=== PATIENT | male | born 1940 | race Caucasian/White ===

== ENCOUNTER → 2017-04-24 | Outpatient (CLI) | payer OTHER | LOC: NUC 08:20 | DX: I25.10 Atherosclerotic heart disease of native coronary artery without angina pectoris (principal) ==

== ENCOUNTER 2017-09-30 12:39 | Emergency (ER) | payer OTHER ==
[~2017-09-30] VITALS: Ht 190.5 cm; Wt 104.3 kg
[2017-09-30 13:07] LABS: ABSOLUTE NEUTROPHILS 5.9 thou/uL (1.4-8.2); BASOPHILS 0.5 % (0.0-2.0); EOSINOPHILS 0.8 % (0.0-3.0); HEMATOCRIT 47.6 % (42.0-52.0); HEMOGLOBIN 16.1 gm/dL (14.0-18.0); LYMPHOCYTES 20.9 % (24.0-44.0); MCHC 33.7 g/dL (28.0-37.0); MCV 91.9 fL (80.0-100.0); MONOCYTES 5.6 % (1.0-8.0); PLATELET COUNT 206 thou/uL (150-400); POLYS 72.2 % (36.0-66.0); RBC 5.18 mil/uL (4.50-6.00); RDW 13.4 % (10.5-14.5); WBC 8.2 thou/uL (4.0-11.0)
[2017-09-30 13:08] LABS: MANUAL DIFF NO
[2017-09-30 13:21] LABS: CALCIUM 9.3 mg/dL (8.5-10.1); CREATININE 1.2 mg/dL (0.7-1.3); POTASSIUM 4.3 mmol/L (3.5-5.1)
[2017-09-30 13:27] LABS: TOTAL BILIRUBIN 0.8 mg/dL (<0.1-1.0); TOTAL PROTEIN 7.5 g/dL (6.4-8.2)
[2017-09-30] MEDS ORDERED: BENTYL 10 MG CA10 M1 PO (14:43)
[2017-09-30] MEDS ORDERED: LOPERAMIDE 2 MG2 M1 PO (14:43)
[2017-09-30 14:51] VITALS: BP 147/87
== END 2017-09-30 14:57 | disposition home or self-care (01) ==
LOC: ER 12:39
PROVIDERS: Physician Assistant
DX: R19.7 Diarrhea, unspecified (principal); K21.9 Gastro-esophageal reflux disease without esophagitis; I20.9 Angina pectoris, unspecified; Z98.890 Other specified postprocedural states

== ENCOUNTER → 2017-10-30 | Outpatient (CLI) | payer OTHER ==
[~2017-10-30] MED LIST: BENTYL 10 MG CA10 M1 PO; LOPERAMIDE 2 MG2 M1 PO
--- NOTE | ~2017-10-30 | 2DMMODE ---
[facility] [address] [place] [address] 2 D/M-MODE ECHOCARDIOGRAM Name: MORE KHOURY Room #: REG [facility]#: [id number] Admission: 10/30/17 Attend Phys: Michael Woodard MD Discharge: Date of : 40 Date of Service: 10/30/17 1605 Report #: [id number] THIS REPORT FOR: //name// APPROVED REPORT Study performed: 10/30/2017 14:55:10 EXAM: Comprehensive 2D, Doppler, and color-flow Echocardiogram Patient Location: Out-Patient Status: routine BSA: 2.32 HR: 66 bpm BP: 125/65 mmHg Rhythm: NSR Other Information Study Quality: Adequate Technically limited study due to body habitus, lung artifact. Indications CAD, history of CABG 2D Dimensions RVDd: 37.98 mm LVEF(%): 60.88 (>50%) IVSd: 10.41 (7-11mm) LVOT Diam: 20.55 (18-24mm) LVDd: 49.85 mm PWd: 10.65 (7-11mm) Ascending Ao: 29.97 (22-36mm) LVDs: 33.55 (25-40mm) Aortic Root: 33.92 mm Camara's LVEF: 60.88 % Volumes Left Atrial Volume (Systole) Single Plane 4CH: 72.15 mL Single Plane 2CH: 71.52 mL LA ESV Index: 33.00 mL/m2 Aortic Valve AoV Peak Winston.: 1.14 m/s AO Peak Gr.: 6.47 mmHg LVOT Max P.28 mmHg LVOT Max V: 1.03 m/s JOY Vmax: 3.02 cm2 Mitral Valve [facility] [address] [address] 2 D/M-MODE ECHOCARDIOGRAM Name: IRAIDAMORE EDMONDSRED Room #: REG [facility]#: [id number] Admission: 10/30/17 Attend Phys: Michael Woodard MD Discharge: Date of : 40 Date of Service: 10/30/17 1605 Report #: [id number] E/A Ratio: 0.9 MV Decel. Time: 184.43 ms MV E Max Winston.: 0.72 m/s MV A Winston.: 0.83 m/s MV PHT: 53.48 ms IVRT: 59.98 ms Pulmonary Valve PV Peak Winston.: 1.34 m/s PV Peak Gr.: 7.13 mmHg Pulmonary Vein P Vein S: 0.64 m/s P Vein A: 0.22 m/s P Vein D: 0.37 m/s P Vein A Dur.: 115.3 msec P Vein S/D Ratio: 1.73 Tricuspid Valve TR Peak Winston.: 2.64 m/s RAP Estimate: 10.00 mmHg TR Peak Gr.: 27.81 mmHg PA Pressure: 38.00 mmHg Left Ventricle The left ventricle is normal size. There is normal LV segmental wall motion. There is normal left ventricular wall thickness. Left ventricular systolic function is normal. LVEF is 55%. Mild diastolic dysfunction is present (impaired relaxation pattern). Right Ventricle Right ventricle is not well visualized but appears grossly normal in size and function. Atria Left atrium is mildly dilated. Right atrium is mildly dilated. Aortic Valve Aortic valve is calcified. No aortic regurgitation is present. There is no aortic valvular stenosis. Mitral Valve The mitral valve is normal in structure. Trace mitral regurgitation. Tricuspid Valve The tricuspid valve is normal in structure. Mild to moderate tricuspid regurgitation. Estiamted PAP is 35-40mmHg. [address] [address] 2 D/M-MODE ECHOCARDIOGRAM Name: MORE KHOURY Room #: REG [facility] [id number] Admission: 10/30/17 Attend Phys: Michael Woodard MD Discharge: Date of : 40 Date of Service: 10/30/17 1605 Report #: [id number] Pulmonic Valve The pulmonary valve is normal in structure. There is no pulmonic valvular regurgitation. Great Vessels The aortic root is normal in size. The ascending aorta is normal in size. IVC is dilated and collapses >50% with inspiration. Pericardium There is no pericardial effusion. <Conclusion> The left ventricle is normal size. Left ventricular systolic function is normal. Mild diastolic dysfunction is present (impaired relaxation pattern). Left atrium is mildly dilated. Right atrium is mildly dilated. There is no aortic valvular stenosis. Trace mitral regurgitation. Mild to moderate tricuspid regurgitation. Estiamted PAP is 35-40mmHg. <ELECTRONICALLY SIGNED> By: Michael Woodard MD 10/30/17 1605 1605 1605 Michael Woodard MD /INF
== END ==
LOC: CV 12:16
DX: I25.10 Atherosclerotic heart disease of native coronary artery without angina pectoris (principal); I07.1 Rheumatic tricuspid insufficiency; I10 Essential (primary) hypertension; Z95.1 Presence of aortocoronary bypass graft

== ENCOUNTER → 2019-09-16 | Outpatient (CLI) | payer OTHER ==
--- NOTE | 2019-09-16 13:15 | EXE ---
[facility] [address] [place] [address] STRESS ECHOCARDIOGRAM Name: MORE KHOURY Room #: REG [facility]#: [id number] Admission: 09/16/19 Attend Phys: Michael Woodard MD Discharge: Date of : 40 Report #: [id number] THIS REPORT FOR: //name// APPROVED REPORT Study performed: 09/16/2019 10:19:48 Exam: Stress Echocardiogram Indication: CAD s/p CABG Patient Location: Out-Patient Stress Nurse: Celina Jamil RN Status: routine Ht: 6 ft 3 in HR: 65 bpm BP: 144/80 mmHg Rhythm: NSR Medical History Medications: Listed on worksheet Allergies: No known drug allergies Cardiac Risk Factors: HTN, Hyperlipidemia, FHX of CAD Previous Cardiac Procedures: CABG Procedure The patient underwent an Exercise Stress Test using the Abdelrahman Protocol. Blood pressure, heart rate, and EKG were monitored. An Echocardiogram was performed by paint technician in four stages in quad fashion. At peak stress, four selected images were obtained and placed side by side with resting images for comparison. Stress Test Details Stress Test: Exercise stress testing was performed using a Abdelrahman protocol. HR Resting HR: 65 bpm Max Heart Rate (APMHR): 141 bpm Max HR Achieved: 148 bpm Target HR (85% APMHR): 119 bpm % of APMHR: 104 Recovery HR: 89 bpm HR response to stress: Normal HR response to stress BP Resting BP: 144/80 mmHg Max BP: 190/70 mmHg Recovery BP: 140/70 mmHg BP response to stress: Normal blood pressure response to [facility] [address] [place] [address] STRESS ECHOCARDIOGRAM Name: MORE KHOURY Room #: REG [facility] [id number] Admission: 09/16/19 Attend Phys: Michael Woodard MD Discharge: Date of : 40 Report #: [id number] stress. ECG Resting ECG: Sinus Rhythm Stress ECG: Sinus Rhythm, nonspecific ST-T abnormalities ST Change: Non-ischemic Clinical Reason for Termination: Completed protocol Stress Symptoms: Fatigue Exercise duration: 8 min 30 sec Highest Stage Achieved: Stage 3: 3.4 mph at 14% grade. Exercise capacity: 10.40 METs Pre-Stress Echo The resting Echocardiogram showed normal left ventricular contractility with an estimated Ejection Fraction of about 55%. The resting echocardiogram demonstrated normal wall motion in all wall segments. Normal wall motion in all segments on baseline images. Post-Stress Echo The stress Echocardiogram showed normal left ventricular contractility with an estimated Ejection Fraction of about 65-70%. Compared to rest, there were no stress-induced wall motion abnormalities. Normal augmentation of wall motion in all segments on post stress images. Clinical No clinical or ECG evidence for ischemia. Conclusion Clinical Response: Non-ischemic Exercise Capacity: Above average Stress ECG Response: Non-ischemic Stress Echo Images: Non-ischemic The left ventricle is normal in size and wall thickness in both the rest and stress images. Other Information Study Quality: Adequate/Fair <Conclusion> [facility] [address] [address] STRESS ECHOCARDIOGRAM Name: MORE KHOURY Room #: REG [facility]#: [id number] Admission: 09/16/19 Attend Phys: Michael Woodard MD Discharge: Date of : 40 Report #: [id number] The left ventricle is normal in size and wall thickness in both the rest and stress images. <ELECTRONICALLY SIGNED> By: Michael Woodard MD 09/16/195 14 14 Michael Woodard MD /INF
== END ==
LOC: CV 09:53
DX: I25.810 Atherosclerosis of coronary artery bypass graft(s) without angina pectoris (principal); Z95.5 Presence of coronary angioplasty implant and graft

== ENCOUNTER → 2020-03-16 | Outpatient (CLI) | payer OTHER | LOC: SJCVC 11:16 | PROVIDERS: ATTEND Internal Medicine Cardiovascular Disease | DX: I25.700 Atherosclerosis of coronary artery bypass graft(s), unspecified, with unstable angina pectoris (principal); I10 Essential (primary) hypertension; I44.7 Left bundle-branch block, unspecified; E78.5 Hyperlipidemia, unspecified; E78.00 Pure hypercholesterolemia, unspecified; Z79.82 Long term (current) use of aspirin; Z79.899 Other long term (current) drug therapy; Z95.1 Presence of aortocoronary bypass graft; Z82.49 Family history of ischemic heart disease and other diseases of the circulatory system ==

== ENCOUNTER → 2020-10-26 | Outpatient (CLI) | payer OTHER | LOC: SJCVCIMAG 10-18 09:10 | PROVIDERS: ATTEND Internal Medicine Cardiovascular Disease | DX: I25.10 Atherosclerotic heart disease of native coronary artery without angina pectoris (principal); I10 Essential (primary) hypertension; E78.00 Pure hypercholesterolemia, unspecified; R60.9 Edema, unspecified; Z95.1 Presence of aortocoronary bypass graft; Z79.82 Long term (current) use of aspirin; Z79.899 Other long term (current) drug therapy ==

== ENCOUNTER → 2021-04-26 | Outpatient (CLI) | payer OTHER | LOC: SJCVCIMAG 09:37 → SJCVC 15:14 → SJCVCIMAG 15:14 | PROVIDERS: ATTEND Internal Medicine Cardiovascular Disease | DX: I45.10 Unspecified right bundle-branch block (principal); I10 Essential (primary) hypertension; I25.10 Atherosclerotic heart disease of native coronary artery without angina pectoris; E78.00 Pure hypercholesterolemia, unspecified; R60.9 Edema, unspecified; E11.9 Type 2 diabetes mellitus without complications; E78.5 Hyperlipidemia, unspecified; Z95.1 Presence of aortocoronary bypass graft; Z79.82 Long term (current) use of aspirin; Z79.899 Other long term (current) drug therapy; Z82.49 Family history of ischemic heart disease and other diseases of the circulatory system ==

== ENCOUNTER → 2021-10-31 | Outpatient (CLI) | payer OTHER | LOC: SJCVC 11:29 | PROVIDERS: ATTEND Internal Medicine Cardiovascular Disease | DX: I25.10 Atherosclerotic heart disease of native coronary artery without angina pectoris (principal); I10 Essential (primary) hypertension; E78.00 Pure hypercholesterolemia, unspecified; R60.9 Edema, unspecified; E11.9 Type 2 diabetes mellitus without complications; E78.5 Hyperlipidemia, unspecified; Z72.89 Other problems related to lifestyle; Z79.82 Long term (current) use of aspirin; Z79.899 Other long term (current) drug therapy; Z82.49 Family history of ischemic heart disease and other diseases of the circulatory system ==